=== PATIENT | male | born 1970 | race Two or more races ===

== ENCOUNTER 2025-03-15 12:58 | Emergency (ER) | payer SELFPAY ==
[~2025-03-15] VITALS: Ht 177.8 cm; Wt 81.2 kg
[2025-03-15] MEDS: IV NS 0.9% 1,000 ML BAG IV ONE (13:18)
[2025-03-15 14:00] VITALS: BP 121/62; TEMP 98; O2SAT 98
== END 2025-03-15 14:01 | disposition home or self-care (01) ==
LOC: ER 13:01
DX: G40.909 Epilepsy, unspecified, not intractable, without status epilepticus (principal); E86.0 Dehydration; I10 Essential (primary) hypertension
CPT/HCPCS: 99283; 96360; 93005; J7030